=== PATIENT | male | born 1980 | race Caucasian/White ===

== ENCOUNTER → 2022-07-03 | Outpatient (REF) | LOC: M LABSMTC 09:44 | PROVIDERS: ATTEND Family Medicine | DX: Z11.52 Encounter for screening for COVID-19 (principal) ==

== ENCOUNTER 2023-05-26 09:21 | Emergency (ER) | payer OTHER ==
[~2023-05-26] VITALS: Ht 180.3 cm; Wt 108.0 kg
[2023-05-26] MEDS ORDERED: BACI500O8 TOP (10:06)
[2023-05-26 11:00] VITALS: BP 144/94; TEMP 97.2; O2SAT 98
== END 2023-05-26 11:02 | disposition home or self-care (01) ==
LOC: M ED 09:21
DX: S41.132A Puncture wound without foreign body of left upper arm, initial encounter (principal); R03.0 Elevated blood-pressure reading, without diagnosis of hypertension; Z88.8 Allergy status to other drugs, medicaments and biological substances; Z79.2 Long term (current) use of antibiotics; Y92.9 Unspecified place or not applicable; Y93.89 Activity, other specified; Y99.0 Civilian activity done for income or pay

== ENCOUNTER → 2024-02-06 | Outpatient (REF) ==
[~2024-02-06] MED LIST: BACI500O8 TOP
== END ==
LOC: M EMP 10:02
PROVIDERS: ATTEND Family Medicine
DX: Z11.52 Encounter for screening for COVID-19 (principal)

== ENCOUNTER 2024-05-28 12:19 | Emergency (ER) | payer BC, OTHER, SELFPAY ==
[2024-05-28 13:12] LABS: BASO % 0.5 % (0.0-1.0); EOS % 0.2 % (0.0-3.0); HEMATOCRIT 45.5 % (42.0-52.0); HEMOGLOBIN 16.4 g/dl (13.5-17.5); LYMPH # 1.8 10^3/uL (1.5-5.0); LYMPH % 20.5 % (24.0-44.0); MEAN CORPUSCULAR HEMOGLOBIN 33.3 pg (27.0-33.0); MEAN CORPUSCULAR VOLUME 92.5 fl (80.0-96.0); MONO # 0.5 10^3/uL (0.0-0.8); MONO % 5.5 % (2.0-8.0); NEUTROPHILS # 6.5 10^3/uL (1.5-8.5); PLATELET COUNT, AUTOMATED 369 10^3/uL (150-450); RED BLOOD COUNT 4.92 10^6/uL (4.30-6.10); WHITE BLOOD COUNT 8.9 10^3/uL (4.0-10.0)
[2024-05-28 13:27] LABS: D-DIMER QUANT < 0.27 ug/mL (<0.5); INR 0.94; PARTIAL THROMBOPLASTIN TIME 27.9 SECONDS (24.8-34.2); PROTHROMBIN TIME 12.9 SECONDS (12.5-14.5)
[2024-05-28 13:36] LABS: LIPASE 118 U/L (12-53)
[2024-05-28 13:38] LABS: ALBUMIN 4.5 G/DL (3.2-5.2); ALKALINE PHOSPHATASE 73 U/L (40-129); ALT/SGPT 48 U/L (7.0-40); AST/SGOT 41 U/L (<34); BILIRUBIN,DIRECT 0.1 MG/DL (<0.4); BILIRUBIN,TOTAL 0.7 MG/DL (0.3-1.2); BLOOD UREA NITROGEN 21 MG/DL (9-23); CALCIUM LEVEL 11.6 MG/DL (8.5-10.1); CARBON DIOXIDE LEVEL 29 MMOL/L (20-31); CHLORIDE LEVEL 104 MMOL/L (98-107); CK-MB VALUE MASS 7.1 NG/ML (<3.6); CREATININE FOR GFR 0.75 MG/DL (0.70-1.30); GLOMERULAR FILTRATION RATE > 60.0 (>60); GLUCOSE, FASTING 137 MG/DL (60-100); POTASSIUM SERUM 4.6 MMOL/L (3.5-5.1); SODIUM LEVEL 141 MMOL/L (136-145)
[2024-05-28 13:39] LABS: THYROID STIMULATING HORMONE 2.935 uIU/ML (0.55-4.78)
[2024-05-28 13:41] LABS: CPK CREATINE PHOSPHOKINASE 655 U/L (46-171); MB/CK RELATIVE INDEX 1.08 (< OR =4)
[2024-05-28 14:27] LABS: CK-MB VALUE MASS 5.8 NG/ML (<3.6)
[2024-05-28 14:28] LABS: MB/CK RELATIVE INDEX 0.98 (< OR =4)
[2024-05-28] MEDS ORDERED: ISOVUE-370 76% 100ML VIAL As Ordered ONE (15:01)
[2024-05-28] MEDS: LR 1,000 ML IV ONE (16:44)
[2024-05-28 18:07] VITALS: BP 140/100; TEMP 98.4; O2SAT 96
== END 2024-05-28 18:09 | disposition home or self-care (01) ==
LOC: M ED 12:19
DX: K21.9 Gastro-esophageal reflux disease without esophagitis (principal); F17.200 Nicotine dependence, unspecified, uncomplicated; N20.0 Calculus of kidney
CPT/HCPCS: 71045; 74177; 76705; 80048; 80076; 82550; 82553; 83690; 83880; 84443; 84484; 85025; 85379; 85610; 85730; 93005; 93041; 94760; 96360; 99285; Q9967

== ENCOUNTER → 2024-08-09 | Outpatient (REF) | LOC: M EMP 09:49 | PROVIDERS: ATTEND Family Medicine | DX: Z11.52 Encounter for screening for COVID-19 (principal) ==